=== PATIENT | male | born 1975 | race American Indian/Alaskan Native ===

== ENCOUNTER 2019-08-03 12:31 | Emergency (ER) | payer SELFPAY ==
[2019-08-03 12:50] VITALS: BP 143/96
--- NOTE | 2019-08-03 12:57 | Emergency Department Report ---
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 Patient states after that happened he has been able to ambulate without difficulties. Patient reports pain is a 7 out of 10 has not taken any pain medication. Patient denies any direct blow or injury to the left knee. Patient reports her history of high blood pressure. - Exam Vital Signs: Vital Signs 08/03/19 12:44 Temperature 98.5 F Pulse Rate 75 Respiratory 20 Rate Blood Pressure 143/96 O2 Sat by Pulse 97 Oximetry Physical Exam: Gen: alert oriented NAD Ambulatory without difficulties full range of motion of left knee no swelling no deformity nonerythematous MSE screening note: Focused history and physical exam performed. 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 Patient states after that happened he has been able to ambulate without difficulties. Patient reports pain is a 7 out of 10 has not taken any pain medication. Patient denies any direct blow or injury to the left knee. Patient reports her history of high blood pressure. Discussed with patient we will refer him to orthopedic provider x-rays are not n eeded as he has no deformity is able to ambulate without any difficulties full range of motion no swelling. Patient can take ibuprofen or Tylenol for pain management follow-up with an orthopedic provider. ED Disposition for MSE Disposition: Z-07 MED SCREENING EXAM-LEFT Is pt being admited?: No Does the pt Need Aspirin: No Condition: Stable Additional Instructions: Patient can take ibuprofen or Tylenol for pain management follow-up with an orthopedic provider. Referrals: ALEN MALONEY MD [Staff Physician] - 3-5 Days Forms: Work/School Release Form(ED)
== END 2019-08-03 13:13 | disposition left against medical advice (07) ==
LOC: ED 12:31
DX: M25.562 Pain in left knee (principal); I10 Essential (primary) hypertension; Z87.442 Personal history of urinary calculi; Z90.49 Acquired absence of other specified parts of digestive tract
CPT/HCPCS: 99282

== ENCOUNTER 2019-08-28 19:32 | Emergency (ER) | payer SELFPAY ==
[2019-08-28 20:57] LABS: Basophils # (Auto) 0.1 K/mm3 (0.0-0.1); Basophils % (Auto) 1.6 % (0.0-1.8); Eosinophils # (Auto) 0.3 K/mm3 (0.0-0.4); Eosinophils % (Auto) 3.4 % (0.0-4.3); Hematocrit 44.1 % (35.5-45.6); Hemoglobin 14.7 gm/dl (11.8-15.2); Lymphocytes # (Auto) 1.8 K/mm3 (1.2-5.4); Lymphocytes % (Auto) 22.6 % (13.4-35.0); Mean Corpuscular HGB Conc 33 % (32-34); Mean Corpuscular Volume 96 fl (84-94); Monocytes # (Auto) 0.5 K/mm3 (0.0-0.8); Monocytes % (Auto) 5.9 % (0.0-7.3); Platelet Count 227 K/mm3 (140-440); Red Blood Count 4.58 M/mm3 (3.65-5.03); Red Cell Distribution Width 13.2 % (13.2-15.2)
--- NOTE | 2019-08-28 21:00 | XRay Report ---
CHEST PA AND LATERAL VIEWS INDICATION: MAIN: Chest Pain; Pt c/o left knee pain x 3 weeks. Denies injury. States that he was having shortne ss of breath when he got off of work. States that he is no longer having shortness of breath but fee ls flutters to chest occassionally. COMPARISON: 07/30/2017. FINDINGS: Support devices: None. Heart: Within normal limits. Lungs/Pleura: No acute pulmonary or pleural findings. IMPRESSION: 1. No acute findings. Signer Name: Chandana Caballero MD Signed: 08/28/2019 8:56 PM Workstation Name: [id number]
[2019-08-28 21:14] LABS: BUN/Creatinine Ratio 15; Blood Urea Nitrogen 16 mg/dL (9-20); Calcium 8.9 mg/dL (8.4-10.2); Hemolysis Index 23
[2019-08-28] MEDS ORDERED: KETOROLAC 60 MG/2 ML INJ IM ONE (21:29)
[2019-08-28] MEDS ORDERED: dexAMETHasone 20 MG/5 ML VIAL IM ONE (21:30)
[2019-08-28] MEDS ORDERED: hydrOXYzine PAMOATE 25 MG CAP PO ONE (21:30)
--- NOTE | 2019-08-28 23:00 | Emergency Department Report ---
ED General Adult HPI - General Chief complaint: Dyspnea/Respdistress Stated complaint: SOB Source: patient Mode of arrival: Ambulatory Limitations: No Limitations - History of Present Illness Initial comments: Patient is a 44-year-old -I[place]ian male with a history of kidney stones and hypertension as well as osteoarthritis of the left knee from an old injury presents to the ED with acute onset shortness of breath and chest pain for 2 hours after he learned that he may have been exposed to COVID-19 patient's [address] his place of work. Patient states that he started a new job today at an [employer] and 14 new admissions came to the facility who had been confirmed positive for COVID-19. Patient states that although he observed universal precautions at all times he felt that at some point in the course of the day he forgot to wear his mask while in the room with 1 of the patients. Patient states that chest pain and shortness of breath have worsened especially in the last 2 hours. Patient also complains of severe left knee pain from an old injury he sustained in 2014 and for which he has been taking [id number] medication with no relief. Patient denies dizziness, fever, chills, cough, nasal and sinus congestion, nausea and vomiting, diarrhea, abdominal pain, sore throat, fall, dysuria or urinary frequency and urgency and headache. MD Complaint: shortness of breath, fears may have been exposed to Covid-19; knee pain -: Sudden, week(s) (2) Location: chest (left chest ) Radiation: non-radiation Severity scale (0 -10): 8 Quality: aching, sharp Consistency: constant Improves with: none Worsens with: none Associated Symptoms: denies other symptoms, chest pain, shortness of breath. denies: confusion, cough, diaphoresis, fever/chills, headaches, loss of appetite, malaise, nausea/vomiting, rash, seizure, syncope, weakness, other Treatments Prior to Arrival: none - Related Data Previous Rx's Medication Instructions Recorded Last Taken Type Ciprofloxacin HCl [Cipro] 500 mg PO Q12H #20 tab 02/03/14 Unknown Rx Ibuprofen [Motrin] 600 mg PO Q8H PRN #60 tablet 02/03/14 Unknown Rx Sulfamethoxazole/Trimethoprim 1 each PO BID #20 tablet 02/03/14 Unknown Rx [Bactrim Ds] amLODIPine 10 mg PO QDAY #90 tablet 02/03/14 Unknown Rx hydroCHLOROthiazide 25 mg PO QDAY #90 tablet 02/03/14 Unknown Rx [Hydrochlorothiazide] Naproxen 500 mg PO Q12H PRN #30 tablet 08/28/19 Unknown Rx hydrOXYzine PAMOATE [Vistaril] 25 mg PO Q6HR PRN #30 capsule 08/28/19 Unknown Rx predniSONE [Deltasone] 60 mg PO QDAY #15 tab 08/28/19 Unknown Rx traMADoL [Ultram] 50 mg PO Q6HR PRN #12 tablet 08/28/19 Unknown Rx Allergies Allergy/AdvReac Type Severity Reaction Status Date / Time Iodinated Contrast Media Allergy Swelling Verified 08/28/19 20:02 ED Review of Systems ROS: Stated complaint: SOB Other details as noted in HPI Constitutional: denies: chills, fever Eyes: denies: eye pain, eye discharge, vision change ENT: denies: ear pain, throat pain Respiratory: shortness of breath, other (scared of Covid-19 exposure). denies: cough, wheezing Cardiovascular: chest pain (left-sided). denies: palpitations Endocrine: no symptoms reported Gastrointestinal: denies: abdominal pain, nausea, vomiting, diarrhea Genitourinary: denies: urgency, dysuria, frequency Musculoskeletal: joint swelling (left knee swelling and pain), arthralgia (left knee pain and swelling). denies: back pain Skin: denies: rash, lesions Neurological: denies: headache, weakness, paresthesias Psychiatric: anxiety. denies: depression, auditory hallucinations, visual hallucinations, suicidal thoughts Hematological/Lymphatic: denies: easy bleeding, easy bruising ED Past Medical Hx - Past Medical History Previous Medical History?: Yes Hx Hypertension: Yes Hx Kidney Stones: Yes - Surgical History Past Surgical History?: Yes Hx Appendectomy: Yes - Social History Smoking Status: Never Smoker Substance Use Type: None - Medications Home Medications: Home Medications Medication Instructions Recorded Confirmed Last Taken Type Ciprofloxacin HCl [Cipro] 500 mg PO Q12H #20 tab 02/03/14 Unknown Rx Ibuprofen [Motrin] 600 mg PO Q8H PRN #60 tablet 02/03/14 Unknown Rx Sulfamethoxazole/Trimethoprim 1 each PO BID #20 tablet 02/03/14 Unknown Rx [Bactrim Ds] amLODIPine 10 mg PO QDAY #90 tablet 02/03/14 Unknown Rx hydroCHLOROthiazide 25 mg PO QDAY #90 tablet 02/03/14 Unknown Rx [Hydrochlorothiazide] Naproxen 500 mg PO Q12H PRN #30 tablet 08/28/19 Unknown Rx hydrOXYzine PAMOATE [Vistaril] 25 mg PO Q6HR PRN #30 capsule 08/28/19 Unknown Rx predniSONE [Deltasone] 60 mg PO QDAY #15 tab 08/28/19 Unknown Rx traMADoL [Ultram] 50 mg PO Q6HR PRN #12 tablet 08/28/19 Unknown Rx ED Physical Exam - General Limitations: No Limitations General appearance: alert, in no apparent distress - Head Head exam: Present: atraumatic, normocephalic, normal inspection - Eye Eye exam: Present: normal appearance, PERRL, EOMI Pupils: Present: normal accommodation - ENT ENT exam: Present: normal exam, normal orophraynx, mucous membranes moist, TM's normal bilaterally, normal external ear exam - Neck Neck exam: Present: normal inspection, full ROM. Absent: tenderness, lymphadenopathy - Respiratory Respiratory exam: Present: normal lung sounds bilaterally. Absent: respiratory distress, wheezes, rales, rhonchi, chest wall tenderness, accessory muscle use, decreased breath sounds, prolonged expiratory - Cardiovascular Cardiovascular Exam: Present: regular rate, normal rhythm, normal heart sounds. Absent: systolic murmur, diastolic murmur, rubs, gallop - GI/Abdominal GI/Abdominal exam: Present: soft, normal bowel sounds. Absent: tenderness, guarding, rebound, hyperactive bowel sounds, hypoactive bowel sounds - Extremities Exam Extremities exam: Present: normal inspection, full ROM, tenderness (Palpable tenderness of left knee and left ankle with swelling), normal capillary refill, joint swelling (Left ankle and left knee swelling and tenderness). Absent: calf tenderness - Back Exam Back exam: Present: normal inspection, full ROM. Absent: tenderness, CVA tenderness (R), CVA tenderness (L), muscle spasm, paraspinal tenderness, vertebral tenderness - Neurological Exam Neurological exam: Present: alert, oriented X3, CN II-XII intact, normal gait, reflexes normal - Psychiatric Psychiatric exam: Present: normal affect, normal mood, anxious - Skin Skin exam: Present: warm, dry, intact, normal color. Absent: rash ED Course Vital Signs 08/28/19 19:53 Temperature 98.1 F Pulse Rate 76 Respiratory 16 Rate Blood Pressure 144/90 O2 Sat by Pulse 98 Oximetry ED Medical Decision Making - Lab Data Result diagrams: 08/28/19 20:41 08/28/19 20:41 - Radiology Data Radiology results: report reviewed, image reviewed Findings [facility] [address] [place] [address] XRay Report Signed Patient: STAN MANNING II MR#: [id number] 06 : 1975 Acct:[id number] Age/Sex: 44 / M ADM Date: 08/28/19 Loc: ED Attending Dr: Ordering Physician: MILLICENT GARCIA III, MD Date of Service: 08/28/19 Procedure(s): XR chest routine 2V Accession Number(s): [id number] cc: MILLICENT GARCIA III, MD Fluoro Time In Minutes: CHEST PA AND LATERAL VIEWS INDICATION: MAIN: Chest Pain; Pt c/o left knee pain x 3 weeks. Denies injury. States that he was having shortness of breath when he got off of work. States that he is no longer having shortness of breath but feels flutters to chest occassionally. COMPARISON: 07/30/2017. FINDINGS: Support devices: None. Heart: Within normal limits. Lungs/Pleura: No acute pulmonary or pleural findings. IMPRESSION: 1. No acute findings. Signer Name: Chandana Caballero MD Signed: 08/28/2019 8:56 PM Workstation Name: [id number] Transcribed By: Dictated By: Chandana Caballero MD Electronically Authenticated By: Chandana Caballero MD Signed Date/Time: 08/28/192055 DD/ 54 TD/TT: - Medical Decision Making This is a 44-year-old -[place]ian male with a history of kidney stones and hypertension as well as osteoarthritis of the left knee from an old injury presents to the ED with acute onset shortness of breath and chest pain for 2 hours after he learned that he may have been exposed to COVID-19 patient's at his place of work. Patient states that he started a new job today at an [employer] and 14 new admissions came to the facility who had been confirmed positive for COVID-19. Patient states that although he observed universal precautions at all times he felt that at some point in the course of the day he forgot to wear his mask while in the room with 1 of the patients. Patient states that chest pain and shortness of breath have worsened especially in the last 2 hours. Patient also complains of severe left knee pain from an old injury he sustained in 2014 and for which he has been taking [id number] medication with no relief. - Differential Diagnosis Anxiety; pneumonia; CAD; Osteoathritis; Muscle strain; Gout Critical care attestation.: If time is entered above; I have spent that time in minutes in the direct care of this critically ill patient, excluding procedure time. ED Disposition Clinical Impression: Anxiety as acute reaction to exceptional stress, Acute nonspecific chest pain with low risk of coronary artery disease, Chronic osteoarthritis, Exposure to COVID-19 virus Disposition: TO HOME OR SELFCARE Is pt being admited?: No Does the pt Need Aspirin: No Condition: Stable Instructions: Chest Pain (ED), Anxiety (ED), Osteoarthritis (ED) Additional Instructions: Your symptoms are likely due to anxiety after you got information about COVID-19 exposure. All lab test results were reviewed and are all nonactionable. Chest x-ray is within normal limits with no acute abnormalities. Your left knee pain is chronic due to degenerative joint disease from old injury. Therefore take medication with food, drink plenty fluids and follow-up with the primary care physician in 5 to 7 days for reevaluation or return to the ED immediately if symptoms get worse. It is also advisable that he self quarantine at home for 14 days as a precaution for possible exposure to COVID-19. Prescriptions: predniSONE [Deltasone] 60 mg PO QDAY #15 tab Naproxen 500 mg PO Q12H PRN #30 tablet PRN Reason: Pain , Severe (7-10) traMADoL [Ultram] 50 mg PO Q6HR PRN #12 tablet PRN Reason: Pain hydrOXYzine PAMOATE [Vistaril] 25 mg PO Q6HR PRN #30 capsule PRN Reason: Anxiety Referrals: TRAVIS PATEL MD [Staff Physician] - 7-10 days Time of Disposition: 23:12 Print Language: NEPALI
[2019-09-01 11:31] VITALS: BP 141/89
== END 2019-08-29 00:02 | disposition home or self-care (01) ==
LOC: ED 19:32
DX: R07.89 Other chest pain (principal); Z20.828 Contact with and (suspected) exposure to other viral communicable diseases; F41.9 Anxiety disorder, unspecified; G89.29 Other chronic pain; I10 Essential (primary) hypertension; Z79.899 Other long term (current) drug therapy; Z91.041 Radiographic dye allergy status
CPT/HCPCS: 36415; 71046; 80048; 84484; 85025; 93005; 96372; 99284; J1100; J1885; Q0177

== ENCOUNTER 2019-12-22 15:59 | Outpatient (CLI) | payer SELFPAY ==
[2019-12-22 16:45] LABS: Basophils # (Auto) 0.1 K/mm3 (0.0-0.1); Basophils % (Auto) 0.9 % (0.0-1.8); Eosinophils # (Auto) 0.3 K/mm3 (0.0-0.4); Eosinophils % (Auto) 4.1 % (0.0-4.3); Hematocrit 46.4 % (35.5-45.6); Hemoglobin 15.6 gm/dl (11.8-15.2); Lymphocytes # (Auto) 1.6 K/mm3 (1.2-5.4); Lymphocytes % (Auto) 21.9 % (13.4-35.0); Mean Corpuscular HGB Conc 34 % (32-34); Mean Corpuscular Volume 98 fl (84-94); Monocytes # (Auto) 0.5 K/mm3 (0.0-0.8); Monocytes % (Auto) 6.8 % (0.0-7.3); Platelet Count 225 K/mm3 (140-440); Red Blood Count 4.75 M/mm3 (3.65-5.03); Red Cell Distribution Width 12.6 % (13.2-15.2)
[2019-12-22 17:05] LABS: Alanine Aminotransferase 29 units/L (7-56); Albumin 3.7 g/dL (3.9-5); BUN/Creatinine Ratio 10; Blood Urea Nitrogen 9 mg/dL (9-20); Calcium 8.9 mg/dL (8.4-10.2); Chol/HDL Ratio 2.76 %; HDL Cholesterol 50 mg/dL (40-59); Hemolysis Index 9; LDL Cholesterol,Direct 80 mg/dL (50-130)
== END 2019-12-22 16:00 | disposition home or self-care (01) ==
LOC: LAB 15:59
PROVIDERS: ATTEND Internal Medicine
DX: Z00.00 Encounter for general adult medical examination without abnormal findings (principal); Z13.220 Encounter for screening for lipoid disorders; Z13.29 Encounter for screening for other suspected endocrine disorder; E56.9 Vitamin deficiency, unspecified
CPT/HCPCS: 36415; 80053; 80061; 82306; 82607; 83036; 84443; 85025